=== PATIENT | female | born 1965 | race Two or more races ===

== ENCOUNTER 2018-03-08 19:30 | Emergency (ER) | payer BC ==
--- NOTE | 2018-03-08 20:23 | EDM.PDOC ---
ED HPI GENERAL MEDICAL PROBLEM - General Chief Complaint: Upper Extremity Injury/Pain Stated Complaint: LEFT THUMB PAIN Time Seen by Provider: 03/08/18 20:10 Source of Information: Reports: Patient History Limitations: Reports: No Limitations - History of Present Illness INITIAL COMMENTS - FREE TEXT/NARRATIVE: HISTORY AND PHYSICAL: History of present illness: [Patient comes to the emergency room complaining of left thumb pain. Believes that she got a piece of steel wool in her left thumb 1-1/2 weeks ago. Her thumb has gradually become more tender, red and swollen. She does not have a local PCP and so presents to the emergency room for evaluation today. She denies fever and chills. She does not have any other similar symptoms elsewhere. No abdominal pain, nausea or vomiting. No drainage from her left thumb. No history of previous symptoms.] Review of systems: As per history of present illness and below otherwise all systems reviewed and negative. Past medical history: As per history of present illness and as reviewed below otherwise noncontributory. Surgical history: As per history of present illness and as reviewed below otherwise noncontributory. Social history: No reported history of drug or alcohol abuse. Family history: As per history of present illness and as reviewed below otherwise noncontributory. Physical exam: HEENT: Atraumatic, normocephalic. Extremities: Left thumb is brightly erythematous and swollen. These findings appear to be extending distally from her left lateral thumbnail area. Is tender with palpation. No open wounds or drainage is noted. Neurovascular unremarkable. Neuro: Awake, alert, oriented. Motor and sensory unremarkable throughout. Exam nonfocal. Impression: [Left thumb cellulitis] Plan: [Will treat with Keflex 500 mg #40 sig: One by mouth every 6 hours until all taken 0 refills. She is given a prescription for Diflucan 150 mg #2 take one now repeat in 3 days 0 refills due to vaginal yeast infections when taking antibiotics. Current close monitoring and to establish care with a local primary care provider and follow-up there in 3-4 days. Strict return precautions are reviewed she is in agreement with today's plan.] Definitive disposition and diagnosis as appropriate pending reevaluation and review of above. Review of Systems - Review of Systems Review Of Systems: ROS reveals no pertinent complaints other than HPI. ED EXAM, GENERAL - Physical Exam Exam: See Below Departure - Departure Time of Disposition: 20:20 Disposition: Home, Self-Care 01 Condition: Good Clinical Impression: Cellulitis of left thumb - Discharge Information Instructions: Cellulitis, Adult Referrals: PCP,None [Primary Care Provider] - Forms: ED Department Discharge Additional Instructions: The following information is given to patients seen in the emergency department who are being discharged to home. This information is to outline your options for follow-up care. We provide all patients seen in our emergency department with a follow-up referral. The need for follow-up, as well as the timing and circumstances, are variable depending upon the specifics of your emergency department visit. If you don't have a primary care physician on staff, we will provide you with a referral. We always advise you to contact your personal physician following an emergency department visit to inform them of the circumstance of the visit and for follow-up with them and/or the need for any referrals to a consulting specialist. The emergency department will also refer you to a specialist when appropriate. This referral assures that you have the opportunity for follow-up care with a specialist. All of these measure are taken in an effort to provide you with optimal care, which includes your follow-up. Under all circumstances we always encourage you to contact your private physician who remains a resource for coordinating your care. When calling for follow-up care, please make the office aware that this follow-up is from your recent emergency room visit. If for any reason you are refused follow-up, please contact the [facility] emergency department at and asked to speak to the emergency department charge nurse. [facility] [address] [place] [id number] Establish care with a local primary care provider in follow-up early next week. Take antibiotic as prescribed. Return to ER as needed as discussed.
== END 2018-03-08 20:36 | disposition home or self-care (01) ==
LOC: MW.ED 19:30
DX: L03.012 Cellulitis of left finger (principal)
CPT/HCPCS: 99282

== ENCOUNTER 2022-07-02 19:33 | Emergency (ER) | payer BC ==
[2022-07-02] MEDS ORDERED: Sodium Chloride 0.9% 10 ML Syringe FLUSH PRN (19:34)
[2022-07-02] MEDS ORDERED: Sodium Chloride 0.9% 2.5 ML Syringe FLUSH PRN (19:34)
[2022-07-02] MEDS ORDERED: fentaNYL 50 MCG/ML SDV IVPUSH ONE (19:35)
[2022-07-02] MEDS ORDERED: Ondansetron 4 MG/2 ML SDV IVPUSH ONE (19:35)
[2022-07-02 20:01] LABS: BLOOD UREA NITROGEN,BUN 17 mg/dL (7.0-18.0); CARBON DIOXIDE,CO2 20.1 mmol/L (21.0-32.0); CHLORIDE,CL 101 mmol/L (98-107); GLUCOSE RANDOM 210 mg/dL (74-106); POTASSIUM,K 3.3 mmol/L (3.5-5.1); SODIUM,NA 138 mmol/L (136-145)
[2022-07-02 20:03] LABS: ESTIMATED GFR 85 mL/min (>60)
[2022-07-02] MEDS ORDERED: Iopamidol 755 MG/ML 500 ML Multipack Bottle IVPUSH ONE (20:38)
[2022-07-02] MEDS ORDERED: Morphine 4 MG/ML Syringe IVPUSH ONE (20:53)
== END 2022-07-02 23:18 | disposition home or self-care (01) ==
LOC: MW.ED 19:33
DX: S76.012A Strain of muscle, fascia and tendon of left hip, initial encounter (principal); W22.09XA Striking against other stationary object, initial encounter
CPT/HCPCS: 36415; 70450; 71045; 71260; 72125; 72128; 72131; 72170; 74177; 80053; 84484; 85025; 93005; 96374; 96375; 99285; J2270; J2405; J3010; J3490; Q9967; 93010